=== PATIENT | female | born 1980 | race Caucasian/White ===

== ENCOUNTER 2021-05-09 19:04 | Emergency (ER) | payer SELFPAY ==
[2021-05-09 19:48] LABS: Urine Blood Negative (Negative); Urine Glucose Negative (Negative); Urine Protein Negative (Negative); Urine Specific Gravity 1.015 (1.005-1.030)
--- NOTE | 2021-05-09 20:42 | RAD REPORT ---
EXAM DESCRIPTION: RAD - Chest Single View - 05/09/2021 8:25 pm CLINICAL HISTORY: CONGESTION, flu-like symptoms COMPARISON: Two view chest December 2011 TECHNIQUE: AP portable chest image was obtained 05/09/2021 8:25 pm . FINDINGS: No focal mass or consolidations seen. Interstitial markings are increased from comparison. Over a 9 year interval this could be progressive interstitial lung disease. In a young patient this may be acute interstitial edema or infiltrate. Failure and volume overload are not suspected. Heart and vasculature are normal. No measurable pleura l effusion and no pneumothorax. No acute bony abnormality seen. No acute aortic findings suspected. IMPRESSION: No peripheral mass or consolidation. Increased interstitial opacification compared to prior imaging. In a patient this age, interstitial e mode or infiltrate would be favored over progressive chronic lung disease.
[2021-05-09 22:08] LABS: Absolute Lymphocytes (CBC) 0.9 K/uL (0.7-4.9); Basophils % 0.7 % (0-1.3); Hematocrit 42.6 % (36.0-45.0); Lymphocytes % 24.9 % (15.3-44.8); RBC Red Blood Cell Count 4.46 M/uL (3.86-4.86)
[2021-05-09 22:10] LABS: Urine Specific Gravity/Preg 1.015 (1.005-1.030)
[2021-05-09 22:10] LABS: Protime INR 1.09
[2021-05-09] MEDS ORDERED: NA CHLORIDE 0.9% 1,000 ML ONE (22:13)
[2021-05-09] MEDS ORDERED: DIPHENHYDRAMINE 50 MG/ML VIAL ONE (22:13)
[2021-05-09] MEDS ORDERED: METOCLOPRAMIDE 10 MG/2mL INJ ONE (22:13)
[2021-05-09] MEDS ORDERED: ACETAMINOPHEN 500 MG TAB ONE (22:13)
[2021-05-09 22:18] LABS: ALT/SGPT 32 U/L (12-78); AST/SGOT 27 U/L (15-37); Albumin 3.7 g/dL (3.4-5.0); Alkaline Phosphatase 95 U/L (45-117); BUN Blood Urea Nitrogen 9 mg/dL (7-18); Bicarbonate 26 mmol/L (21-32); Bilirubin Direct < 0.1 mg/dL (0-0.2); Bilirubin Total 0.4 mg/dL (0.2-1.0); Glucose Level 80 mg/dL (74-106); NT PRO-BNP 40 pg/mL (<125); Potassium 3.7 mmol/L (3.5-5.1); Protein, Total 7.3 g/dL (6.4-8.2); Sodium Level 140 mmol/L (136-145); Troponin (Emerg Dept Use Only) < 0.02 ng/mL (0.0-0.045)
[2021-05-09 22:18] LABS: Barbiturates NEGATIVE (NEGATIVE); Benzodiazepines NEGATIVE (NEGATIVE); Cocaine NEGATIVE (NEGATIVE); METHAMPHETAM NEGATIVE (NEGATIVE); Methadone NEGATIVE (NEGATIVE); Opiates NEGATIVE (NEGATIVE); Phencyclidine NEGATIVE (NEGATIVE); THC Cannibis NEGATIVE (NEGATIVE)
--- NOTE | 2021-05-10 00:50 | EDPHYS ---
Physician Documentation [facility] Name: Ailin Centeno Age: 40 yrs Sex: Female : 1980 Arrival Date: 05/09/2021 Time: 19:05 Bed 18 Private MD: ED Physician Gama Peguero HPI: 05/09 22:23 This 40 yrs old Female presents to ER via Ambulatory with complaints of mh7 Headache, body aches, Irregular Pulse. 22:23 The patient or guardian reports cough, that is intermittent, described as moderate, mh7 with no sputum, flu symptoms, myalgias, Palpitations, headache. 22:24 Onset: The symptoms/episode began/occurred yesterday. Severity of symptoms: At their mh7 worst the symptoms were moderate, last night, in the emergency department the symptoms are unchanged. Modifying factors: The symptoms are alleviated by nothing, the symptoms are aggravated by nothing. Associated signs and symptoms: Pertinent negatives: chest pain, diarrhea, ear ache, fever, nausea, rhinorrhea, sore throat, vomiting. 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 - Social history:: Smoking status: Patient reports the use of cigarette tobacco products. ROS: 22:24 Constitutional: Negative for fever, chills, and weight loss, Eyes: Negative for injury, mh7 pain, redness, and discharge, ENT: Negative for injury, pain, and discharge, Neck: Negative for injury, pain, and swelling, Abdomen/GI: Negative for abdominal pain, nausea, vomiting, diarrhea, and constipation, Back: Negative for injury and pain, : Negative for injury, bleeding, discharge, and swelling, MS/Extremity: Negative for injury and deformity, Skin: Negative for injury, rash, and discoloration, Psych: Negative for depression, anxiety, suicide ideation, homicidal ideation, and hallucinations, Allergy/Immunology: Negative for hives, rash, and allergies, Endocrine: Negative for neck swelling, polydipsia, polyuria, polyphagia, and marked weight changes, Hematologic/Lymphatic: Negative for swollen nodes, abnormal bleeding, and unusual bruising. 22:24 Cardiovascular: Negative for chest pain, edema, orthopnea, paroxysmal nocturnal dyspnea. 22:24 Respiratory: Negative for dyspnea on exertion, hemoptysis, orthopnea, pleurisy, shortness of breath, sputum production, wheezing. 22:24 Abdomen/GI: Exam: 22:24 Constitutional: This is a well developed, well nourished patient who is awake, alert, mh7 and in no acute distress. 22:24 Eyes: Pupils equal round and reactive to light, extra-ocular motions intact. Lids and lashes normal. Conjunctiva and sclera are non-icteric and not injected. Cornea within normal limits. Periorbital areas with no swelling, redness, or edema. ENT: Nares patent. No nasal discharge, no septal abnormalities noted. Tympanic membranes are normal and external auditory canals are clear. Oropharynx with no redness, swelling, or masses, exudates, or evidence of obstruction, uvula midline. Mucous membranes moist. Neck: Trachea midline, no thyromegaly or masses palpated, and no cervical lymphadenopathy. Supple, full range of motion without nuchal rigidity, or vertebral point tenderness. No Meningismus. Chest/axilla: Normal chest wall appearance and motion. Nontender with no deformity. No lesions are appreciated. Cardiovascular: Regular rate and rhythm with a normal S1 and S2. No gallops, murmurs, or rubs. Normal PMI, no JVD. No pulse deficits. Abdomen/GI: Soft, non-tender, with normal bowel sounds. No distension or tympany. No guarding or rebound. No evidence of tenderness throughout. Back: No spinal tenderness. No costovertebral tenderness. Full range of motion. Skin: Warm, dry with normal turgor. Normal color with no rashes, no lesions, and no evidence of cellulitis. MS/ Extremity: Pulses equal, no cyanosis. Neurovascular intact. Full, normal range of motion. Neuro: Awake and alert, GCS 15, oriented to person, place, time, and situation. Cranial nerves II-XII grossly intact. Motor strength 5/5 in all extremities. Sensory grossly intact. Cerebellar exam normal. Normal gait. Psych: Awake, alert, with orientation to person, place and time. Behavior, mood, and affect are within normal limits. 22:24 Head/face: Noted is Sinus tenderness, that is moderate, is located over the right frontal sinus and left frontal sinus. 22:24 Respiratory: the patient does not display signs of respiratory distress, Respirations: normal, Breath sounds: rhonchi, that are mild, are scattered. Vital Signs: 19:38 BP 128 / 78; Pulse 97; Resp 18; Temp 98.9; Pulse Ox 98% ; Weight 72.57 kg; Height 5 ft. ea 9 in. (175.26 cm); 22:00 BP 113 / 69; Pulse 88; Resp 18; Pulse Ox 88% on R/A; Pain 6/10; fu 23:00 BP 96 / 59; Pulse 77; Resp 18; Pulse Ox 94% on R/A; fu 0613 00:45 BP 85 / 49; Pulse 67; Resp 16; Temp 98.2; Pulse Ox 94% on R/A; Pain 0/10; fu 01:13 BP 94 / 63; Pulse 60; Resp 18; Pulse Ox 98% ; ea 05/09 19:38 Body Mass Index 23.63 (72.57 kg, 175.26 cm) MDM: 00:48 Differential Diagnosis: Bronchitis Influenza Upper Respiratory Infection Sinusitis [facility] Viral Syndrome Pneumonia. Data reviewed: vital signs, nurses notes, lab test result(s), CBC, electrolytes, urinalysis, radiologic studies, CT scan, plain films. Data interpreted: Pulse oximetry: on room air is 97 %. Interpretation: normal. Counseling: I had a detailed discussion with the patient and/or guardian regarding: the historical points, exam findings, and any diagnostic results supporting the discharge/admit diagnosis, lab results, radiology results, the need for outpatient follow up, to return to the emergency department if symptoms worsen or persist or if there are any questions or concerns that arise at home. Response to treatment: the patient's symptoms have resolved after treatment, the patient's blood pressure is in an acceptable range, mental status has returned to baseline, the patient no longer shows bradycardia, the patient is not short of breath, the patient is not tachycardic, the patient's pain is gone, the patient's temperature has normalized. 00:50 Patient medically screened. [facility] 05/09 19:33 Order name: Flu; Complete Time: 21:32 05/09 19:48 Order name: Urine Dipstick-Ancillary; Complete Time: 20:57 EDNE 05/09 19:54 Order name: Urine --Ancillary (enter results); Complete Time: 22:22 [facility] 05/09 20:57 Order name: SARS-COV-2 RT PCR; Complete Time: 20:57 EDMS 05/09 21:34 Order name: CBC with Diff; Complete Time: 22:22 [facility] 05/09 19:34 Order name: XRAY Chest (1 view); Complete Time: 20:57 05/09 21:34 Order name: Basic Metabolic Panel; Complete Time: 22:22 [facility] 05/09 21:34 Order name: Protime (+inr); Complete Time: 22:22 [facility] 05/09 21:34 Order name: Ptt, Activated; Complete Time: 22:22 [facility] 05/09 21:34 Order name: LFT's; Complete Time: 22:22 [facility] 05/09 21:34 Order name: UDS; Complete Time: 22:22 [facility] 05/09 21:34 Order name: Troponin (emerg Dept Use Only); Complete Time: 22:22 [facility] 05/09 21:34 Order name: PROBNP; Complete Time: 22:22 [facility] 05/09 19:38 Order name: Urine Dipstick-Ancillary (obtain specimen); Complete Time: 21:21 05/09 21:34 Order name: CT Head Brain wo Cont [facility] 05/09 21:35 Order name: EKG - Nurse/Tech; Complete Time: 22:27 7 Administered Medications: 05/09 22:10 Drug: Reglan (metoCLOPramide) 10 mg Route: IVP; Infused Over: 2 mins; Site: left fu antecubital; 23:10 Follow up: Response: No adverse reaction fu 22:10 Drug: Benadryl (diphenhydrAMINE) 25 mg Route: IVP; Site: left antecubital; fu 23:10 Follow up: Response: No adverse reaction fu 22:10 Drug: Tylenol 1000 mg Route: PO; fu 23:10 Follow up: Response: Pain is decreased fu 22:11 Drug: NS 0.9% 1000 ml Route: IV; Rate: 1000 ml; Site: left antecubital; fu 05/10 00:00 Follow up: Response: No adverse reaction; IV Intake: 1000ml fu 01:00 Follow up: IV Status: Completed infusion; IV Intake: 1000ml ea Disposition: 05/10/21 00:50 Discharged to Home. Impression: Bronchitis, Viral Syndrome. - Condition is Stable. - Discharge Instructions: Acute Bronchitis, Xrad-ca-Ipzk, Viral Respiratory Infection, Wkih-Au-Hdch. - Prescriptions for Zithromax Z- Jeanmarie 250 mg Oral Tablet - take 1 tablet by ORAL route as directed for 5 days Day 1 - take two (2) tablets one time. Day 2, 3, 4 , 5 take one (1) tablet once daily.; 6 tablet. - Medication Reconciliation Form, Thank You Letter, Antibiotic Education, Prescription Opioid Use form. - Follow up: Private Physician; When: 1 - 2 days; Reason: Worsening of condition, Recheck today's complaints, Continuance of care, Re-evaluation by your physician. - Problem is new. - Symptoms have improved. Signatures: Dispatcher [employer] [facility] Joellen Fischer RN RN ea Umadhay, Felix, RN RN fu Holmes, Maurice, MD MD mh7 Corrections: (The following items were deleted from the chart) 05/09 20:03 19:34 CORONAVIRUS+MR.LAB.BRZ ordered. [facility] 05/10 01:14 00:50 05/10/2021 00:50 Discharged to Home. Impression: Bronchitis; Viral Syndrome. ea Condition is Stable. Forms are Medication Reconciliation Form, Thank You Letter, Antibiotic Education, Prescription Opioid Use. Follow up: Private Physician; When: 1 - 2 days; Reason: Worsening of condition, Recheck today's complaints, Continuance of care, Re-evaluation by your physician. Problem is new. Symptoms have improved. mh7
--- NOTE | 2021-05-10 00:50 | ER ---
Nurse's Notes [facility] Name: Ailin Centeno Age: 40 yrs Sex: Female : 1980 Arrival Date: 05/09/2021 Time: 19:05 Bed 18 Private MD: Diagnosis: Bronchitis;Viral Syndrome Presentation: 05/09 19:38 Chief complaint: Patient states: Reports she has been having flu like symptoms since ea last night, reports dry cough and body aches, reports her back has been hurting as well. Coronavirus screen: At this time, the client does not indicate any symptoms associated with coronavirus-19. Ebola Screen: No symptoms or risks identified at this time. Initial Sepsis Screen: Does the patient meet any 2 criteria? No. Patient's initial sepsis screen is negative. Does the patient have a suspected source of infection? No. Patient's initial sepsis screen is negative. Risk Assessment: Do you want to hurt yourself or someone else? Patient reports no desire to harm self or others. Onset of symptoms was May 09, 2021. 19:38 Method Of Arrival: Ambulatory ea 19:38 Acuity: BRODERICK 3 ea Triage Assessment: 19:42 General: Appears uncomfortable, Behavior is appropriate for age. Pain: Complains of ea pain in body aches and back pain. 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 - Social history:: Smoking status: Patient reports the use of cigarette tobacco products. Screenin:40 Abuse screen: Denies threats or abuse. Nutritional screening: No deficits noted. ea Tuberculosis screening: No symptoms or risk factors identified. Fall Risk None identified. Assessment: 21:33 General: Appears uncomfortable, Behavior is calm, cooperative, appropriate for age, fu Reports feeling ill for since last night. Pain: Complains of pain in back and body Pain currently is 8 out of 10 on a pain scale. Quality of pain is described as aching, Pain began since last night. Neuro: Level of Consciousness is awake, alert, obeys commands, Oriented to person, place, time, situation, Sales Promotion Representative are equal bilaterally Moves all extremities. Gait is steady, Speech is normal, Facial symmetry appears normal. Cardiovascular: Denies chest pain, nausea, vomiting. Respiratory: Respiratory effort is even, unlabored, Respiratory pattern is regular. GI: No signs and/or symptoms were reported involving the gastrointestinal system. EENT: Reports flu like symptoms. Derm: No signs and/or symptoms reported regarding the dermatologic system. Musculoskeletal: No signs and/or symptoms reported regarding the musculoskeletal system. 23:28 Reassessment: Patient and/or family updated on plan of care and expected duration. Pain fu level reassessed. Patient is alert, oriented x 3, equal unlabored respirations, skin warm/dry/pink. Patient states feeling better. Patient states symptoms have improved. 05/10 01:00 Reassessment: Dr. Peguero notified regarding patient BP 85/49. instructed to let patient fu sit for 15 minutes and recheck BP. 01:12 Reassessment: Patient and/or family updated on plan of care and expected duration. Pain ea level reassessed. Patient is alert, oriented x 3, equal unlabored respirations, skin warm/dry/pink. Discharge instruction given to patient verbalized the understanding of instruction. Pt left ED accompanied by family tolerating well Patient states feeling better. Patient states symptoms have improved. Vital Signs: 05/09 19:38 BP 128 / 78; Pulse 97; Resp 18; Temp 98.9; Pulse Ox 98% ; Weight 72.57 kg; Height 5 ft. ea 9 in. (175.26 cm); 22:00 BP 113 / 69; Pulse 88; Resp 18; Pulse Ox 88% on R/A; Pain 6/10; fu 23:00 BP 96 / 59; Pulse 77; Resp 18; Pulse Ox 94% on R/A; fu 05/10 00:45 BP 85 / 49; Pulse 67; Resp 16; Temp 98.2; Pulse Ox 94% on R/A; Pain 0/10; fu 01:13 BP 94 / 63; Pulse 60; Resp 18; Pulse Ox 98% ; ea 05/09 19:38 Body Mass Index 23.63 (72.57 kg, 175.26 cm) ea ED Course: 05/09 19:05 Patient arrived in ED. as 19:40 Triage completed. ea 19:41 Patient has correct armband on for positive identification. Bed in low position. Call ea light in reach. Side rails up X2. 20:24 XRAY Chest (1 view) In Process Unspecified. EDMS 20:53 Gama Peguero MD is Attending Physician. Debby 21:33 Declan Olivares, RN is Primary Nurse. fu 21:45 Inserted saline lock: 22 gauge in left antecubital area, using aseptic technique. Blood fu collected. 22:07 CT Head Brain wo Cont In Process Unspecified. EDMS 22:11 UDS Sent. fu 05/10 01:13 No provider procedures requiring assistance completed. IV discontinued, intact, ea bleeding controlled, No redness/swelling at site. Pressure dressing applied. Administered Medications: 05/09 22:10 Drug: Reglan (metoCLOPramide) 10 mg Route: IVP; Infused Over: 2 mins; Site: left fu antecubital; 23:10 Follow up: Response: No adverse reaction fu 22:10 Drug: Benadryl (diphenhydrAMINE) 25 mg Route: IVP; Site: left antecubital; fu 23:10 Follow up: Response: No adverse reaction fu 22:10 Drug: Tylenol 1000 mg Route: PO; fu 23:10 Follow up: Response: Pain is decreased fu 22:11 Drug: NS 0.9% 1000 ml Route: IV; Rate: 1000 ml; Site: left antecubital; fu 13 00:00 Follow up: Response: No adverse reaction; IV Intake: 1000ml fu 01:00 Follow up: IV Status: Completed infusion; IV Intake: 1000ml ea Intake: 00:00 IV: 1000ml; Total: 1000ml. fu 01:00 IV: 1000ml; Total: 2000ml. ea Outcome: 00:50 Discharge ordered by . [facility] 01:13 Discharged to home ambulatory, with family. ea 01:13 Condition: stable 01:13 Discharge instructions given to patient, Instructed on discharge instructions, follow up and referral plans. medication usage, Demonstrated understanding of instructions, follow-up care, medications, Prescriptions given X 1. 01:14 Patient left the ED. ea Signatures: Dispatcher [employer] EDMS Melanie Edouard Elena, RN RN ea Umadhay, Felix, RN RN fu Holmes, Maurice, MD MD mh7
[2021-05-10 02:27] VITALS: TEMP 98.2
[2021-05-10 02:28] VITALS: BP 94/63; O2SAT 98
--- NOTE | 2021-05-11 11:09 | RAD REPORT ---
EXAM DESCRIPTION: HEADACHE COMPARISON: None Available. TECHNIQUE: Contiguous axial images of the brain were obtained without the administration of intraven ous contrast. This exam was performed according to our departmental dose-optimization program, which includes automated exposure control, adjustment of the mA and/or kV according to patient size and/or use of iterative reconstruction technique. FINDINGS: There is no acute intracranial hemorrhage or mass effect. Ventricular system is within nor mal limits. There is adequate diaz-white matter differentiation. There is no skull fracture. The visu alized paranasal sinuses and mastoid air cells are within normal limits. Subcentimeter area of low-at tenuation similar to CSF attenuation medial to the right parasylvian fissure compatible with a promin ent CSF space. IMPRESSION: No acute intracranial abnormalities. Electronically signed by: Rufus Freire MD 05/09/2021 10:26 PM CDT Due to temporary technical issues with the PACS/Fluency reporting system, reports are being signed by the in house radiologists without review as a courtesy to insure prompt reporting. The interpreting radiologist is fully responsible for the content of the report.
== END 2021-05-10 01:14 | disposition home or self-care (01) ==
LOC: ER 19:04
DX: J40 Bronchitis, not specified as acute or chronic (principal); B34.9 Viral infection, unspecified; Z20.822 Contact with and (suspected) exposure to COVID-19; Z72.0 Tobacco use
CPT/HCPCS: 36415; 70450; 71045; 80048; 80076; 80307; 81003; 81025; 83880; 84484; 85025; 85610; 85730; 87804; 93005; 96361; 96374; 96375; 99284; J1200; J2765; J7030; U0003

== ENCOUNTER 2022-02-06 23:05 | Emergency (ER) | payer OTHER, SELFPAY ==
--- OUTSIDE RECORDS SUMMARY | 2022-02-06 23:08 | XMS REPORT | Continuity of Care Document ---
:1980 Author Organization [facility] t Address [address] [place] [address] Care Team Providers Name Role Phone Zaid Quick PA-C Attending Clinician Doctor Unassigned, Name Attending Clinician Unavailable UNKNOWN Attending Clinician Unavailable Pob1, Care Clinic Attending Clinician Unavailable Unknown Attending Clinician Unavailable Payers Payer Name Policy Type Policy Number Effective Date Expiration Date S ource Problems Condition Condition Condition Status Onset Resolution Last Treating Co mments Source Name Details Category Date Date Treatment Clinician Date No known No known Disease Unive rs active active ity of problems problems [facility] Allergies, Adverse Reactions, Alerts Allergy Allergy Status Severity Reaction(s) Onset Inactive Treating Comm ents Source Name Type Date Date Clinician NO KNOWN Drug Active Univers ALLERGIE Class ity of S [facility] Social History Social Habit Start Date Stop Date Quantity Comments Source [facility] Smoking Status Start Date Stop Date Source Current every day smoker 2020-02-23 00:00:00 [facility] Medications Ordered Filled Start Stop Current Ordering Indication Dosage Frequency Signature Comments Components Source Medication Medication Date Date Medication? Clinician (SIG) Name Name benzonatate 2019- 2020- No [id number] 200mg Take 1 Univers 200 mg 02-22-08 capsule by ity of capsule 00:00: 04:59 mouth 3 [place] 00 :00 (three) Medical times Branch daily as needed for Cough for up to 10 days. benzonatate 2019- 2020- No [id number] 200mg Take 1 Univers 200 mg 02-22-08 capsule by ity of capsule 00:00: 04:59 mouth 3 [place] 00 :00 (three) Medical times Branch daily as needed for Cough for up to 10 days. benzonatate 2020- 2020- No [id number] 200mg Take 1 Univers 200 mg 3-08 capsule by ity of capsule 00:00: 04:59 mouth 3 [place] 00 :00 (three) Medical times Branch daily as needed for Cough for up to 10 days. multivit,ir 2018-0 Yes Take by Un jelani on,hematin/ 9-30 mouth. ity of minerals 15:31: [place] (MULTIVIT 47 Medical W-IRON,BINH Branch TINIC-MIN ORAL) zolpidem 2018-0 Yes 10mg Take 10 mg Uni vers (AMBIEN) 10 9-30 by mouth ity of mg tablet 15:31: [place]time [place] 47 as needed Medical for Branch Insomnia. multivit,ir 2017-0 Yes Take by Un jelani on,hematin/ 9-30 mouth. ity of minerals 15:31: [place] (MULTIVIT 47 Medical W-IRON,BINH Branch TINIC-MIN ORAL) zolpidem 2018-0 Yes 10mg Take 10 mg Uni vers (AMBIEN) 10 9-30 by mouth ity of mg tablet 15:31: [place]time [place] 47 as needed Medical for Branch Insomnia. multivit,ir 2017-0 Yes Take by Un jelani on,hematin/ 9-30 mouth. ity of minerals 15:31: [place] (MULTIVIT 47 Medical W-IRON,BINH Branch TINIC-MIN ORAL) zolpidem 2018-0 Yes 10mg Take 10 mg Uni vers (AMBIEN) 10 9-30 by mouth ity of mg tablet 15:31: [place]time [place] 47 as needed Medical for Branch Insomnia. ondansetron 2018-0 Yes 4mg Take 1 Univ ers 4 mg 9-30 tablet by ity of disintegrat 00:00: mouth [place] ing tablet 00 every 4 Medica l (four) Branch hours as needed for Nausea and Vomiting (N/V). ibuprofen 2018-0 Yes 800mg Take 1 Unive rs 800 mg 9-30 tablet by ity of tablet 00:00: mouth [place] 00 every 8 Medical (eight) Branch hours. ondansetron 2018-0 Yes 4mg Take 1 Univ ers 4 mg 9-30 tablet by ity of disintegrat 00:00: mouth [place] ing tablet 00 every 4 Medica l (four) Branch hours as needed for Nausea and Vomiting (N/V). ibuprofen 2018-0 Yes 800mg Take 1 Unive rs 800 mg 9-30 tablet by ity of tablet 00:00: mouth [place] 00 every 8 Medical (eight) Branch hours. ondansetron 2018-0 Yes 4mg Take 1 Univ ers 4 mg 9-30 tablet by ity of disintegrat 00:00: mouth [place] ing tablet 00 every 4 Medica l (four) Branch hours as needed for Nausea and Vomiting (N/V). ibuprofen 2018-0 Yes 800mg Take 1 Unive rs 800 mg 9-30 tablet by ity of tablet 00:00: mouth [place] 00 every 8 Medical (eight) Branch hours. Vital Signs Vital Name Observation Time Observation Value Comments Source Systolic blood 2020-02-23 15:18:00 127 mm[Hg] Univer sity pressure [facility] Diastolic blood 2020-02-23 15:18:00 83 mm[Hg] [facility] Heart rate 2020-02-23 15:18:00 86 /min [facility] Body temperature 2020-02-23 15:18:00 36.83 Sammie [facility] Respiratory rate 2020-02-23 15:18:00 18 /min [facility] Body height 2020-02-23 15:18:00 175.3 cm [facility] Body weight 2020-02-23 15:18:00 74.39 kg [facility] BMI 2020-02-23 15:18:00 24.22 kg/m2 [facility] Oxygen saturation in 2020-02-23 15:18:00 99 /min [facility] blood by [facility] Pulse oximetry Branch Procedures Procedure Date / Time Performed Performing Clinician [facility] e ASSIGNMENT OF BENEFITS 2020-02-24 05:01:00 Doctor Unassigned, No [facility] Branch Encounters Start End Encounter Admission Attending Care Care Encounter Source Date/Time Date/Time Type Type Clinicians Facility Department ID 2020-02-25 2020-02-25 Telephone Mady Quick [facility] [id number] [facility] 00:00:00 00:00:00 [facility] [employer] [facility] [id number] it y of [place] [id number] [place] as Ric [id number] Dc dical [facility] [address] 2020-02-24 2020-02-24 Orders Doctor AAYUSH [id number] Univers 00:00:00 00:00:00 Only Unassigned, ARY [id number] ity of [place] [facility] [id number] [place] as [id number] [address] 2020-02-23 2020-02-23 Outpatient R UNKNOWN, [facility] [id number] Univers 10:40:00 10:40:00 ATTENDING ity of [facility] 2020-02-23 2020-02-23 Urgent Pob1, Acute Care Clinic [facility] [id number] Univers 10:04:39 10:24:39 Care Unknown, Attending Health [id number] ity of [place] [id number] [place] Ric [id number] Dc dic[address] 2020-02-23 2020-02-23 Outpatient R [facility] [id number] Univers 10:00:00 10:00:00 [id number] ity [facility] Results This patient has no known results.
[2022-02-07 00:51] LABS: SARS-COV-2 RT PCR NEGATIVE (NEGATIVE)
[2022-02-07] MEDS ORDERED: IBUPROFEN 200 MG TAB PO ONE (00:59)
--- NOTE | 2022-02-07 01:13 | ER ---
Nurse's Notes [facility] Name: Ailin Centeno Age: 41 yrs Sex: Female : 1980 Arrival Date: 02/06/2022 Time: 23:07 Bed 10 Private MD: Diagnosis: Cough;Acute pharyngitis, unspecified Presentation: 02/06 23:12 Chief complaint: Patient states: Fever, body aches and cough since today. Coronavirus st1 screen: Vaccine status: Patient reports receiving the 2nd dose of the covid vaccine. [employer]. Ebola Screen: No symptoms or risks identified at this time. Initial Sepsis Screen: Does the patient meet any 2 criteria? No. Patient's initial sepsis screen is negative. Does the patient have a suspected source of infection? No. Patient's initial sepsis screen is negative. Risk Assessment: Do you want to hurt yourself or someone else? Patient reports no desire to harm self or others. Onset of symptoms was February 06, 2022. 23:12 Method Of Arrival: Ambulatory st1 23:12 Acuity: [place] 4 st1 Triage Assessment: 23:13 General: Appears in no apparent distress. uncomfortable, Behavior is calm, cooperative. st1 Pain: Complains of pain in Generalized pain Pain currently is 4 out of 10 on a pain scale. 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 - Social history:: Smoking status: Patient reports the use of cigarette tobacco products, smokes one-half pack cigarettes per day, Patient/guardian denies using alcohol, street drugs. Screenin:18 Abuse screen: Denies threats or abuse. Nutritional screening: No deficits noted. st1 Tuberculosis screening: No symptoms or risk factors identified. Fall Risk None identified. No fall in past 12 months (0 pts). No secondary diagnosis (0 pts). No IV (0 pts). Ambulatory Aid- None/Bed Rest/Nurse Assist (0 pts). Gait- Normal/Bed Rest/Wheelchair (0 pts) Mental Status- Oriented to own ability (0 pts). Total Hunter Fall Scale indicates No Risk (0-24 pts). Assessment: 23:18 Reassessment: please see triage note. st1 02/07 01:02 General: Appears in no apparent distress. uncomfortable, slender, well groomed, st1 Behavior is calm, cooperative. Neuro: No deficits noted. Respiratory: Reports cough that is persistent. Vital Signs: 02/06 23:12 Weight 81.65 kg; Height 5 ft. 9 in. (175.26 cm); Pain 4/10; st1 23:16 BP 127 / 80; Pulse 92; Resp 20; Temp 98.1; Pulse Ox 99% on R/A; st1 02/07 01:30 BP 130 / 60; Pulse 84; Resp 16; Pulse Ox 99% on R/A; st1 02/06 23:12 Body Mass Index 26.58 (81.65 kg, 175.26 cm) st1 ED Course: 02/06 23:07 Patient arrived in ED. 23:12 Lora Alarcon, HUNTER is Primary Nurse. st1 23:13 Triage completed. st1 23:13 Arm band placed on right wrist. st1 23:18 Patient has correct armband on for positive identification. st1 23:18 No provider procedures requiring assistance completed. st1 23:24 Moises Hastings PA is [facility] 23:24 Luis Braxton MD is Attending Physician. [facility] 23:47 Group A Streptococcus Rapid Sc Sent. st1 23:47 COVID-19/FLU A+B (Document "Date of Onset" if Symptomatic) Sent. st1 23:47 Strep Sent. st1 02/07 01:30 Patient did not have IV access during this emergency room visit. st1 Administered Medications: 01:02 Drug: Ibuprofen 600 mg Route: PO; lp1 Outcome: 01:13 Discharge ordered by . [facility] 01:29 Discharged to home ambulatory. st1 01:29 Condition: good 01:29 Discharge instructions given to patient, Instructed on discharge instructions, follow up and referral plans. no drinking with medication, medication usage, Demonstrated understanding of instructions, follow-up care, medications, Prescriptions given X 2. 01:31 Patient left the ED. st1 Signatures: Moises Hastings PA PA Michelle Avendano RN RN lp1 Ileana Tiwari Tingle, Lora, RN RN st1
--- NOTE | 2022-02-07 01:13 | EDPHYS ---
Physician Documentation [facility] Name: Ailin Centeno Age: 41 yrs Sex: Female : 1980 Arrival Date: 02/06/2022 Time: 23:07 Bed 10 Private MD: ED Physician Luis Braxton HPI: 02/06 23:30 This 41 yrs old Female presents to ER via Ambulatory with complaints of Fever, Body jmm aches, Cough. 23:30 The patient reports fever, not measured (subjective). Onset: The symptoms/episode jmm began/occurred today. Associated signs and symptoms: Pertinent positives: chills, cough. It is unknown whether or not the patient has had similar symptoms in the past. Is a 41-year-old female with no chronic lung conditions the presents emerged part with complaints of cough, body aches getting earlier today. Denies vomiting or diarrhea.. 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 - Social history:: Smoking status: Patient reports the use of cigarette tobacco products, smokes one-half pack cigarettes per day, Patient/guardian denies using alcohol, street drugs. ROS: 23:30 Constitutional: Positive for body aches, chills. jmm 23:30 ENT: 23:30 Respiratory: Positive for cough. 23:30 All other systems are negative. Exam: 23:30 Constitutional: This is a well developed, well nourished patient who is awake, alert, jmm and in no acute distress. Head/Face: atraumatic. Eyes: EOMI, no conjunctival erythema appreciated 23:30 Neck: Trachea midline, Supple Chest/axilla: Normal chest wall appearance and motion. Cardiovascular: Regular rate and rhythm. No edema appreciated Respiratory: Normal respirations, no respiratory distress appreciated Abdomen/GI: Non distended, soft Back: Normal ROM Skin: General appearance color normal MS/ Extremity: Moves all extremities, no obvious deformities appreciated, no edema noted to the lower extremities Neuro: Awake and alert Psych: Behavior is normal, Mood is normal, Patient is cooperative and pleasant 23:30 ENT: Posterior pharynx: erythema, that is moderate. Vital Signs: 23:12 Weight 81.65 kg; Height 5 ft. 9 in. (175.26 cm); Pain 4/10; st1 23:16 BP 127 / 80; Pulse 92; Resp 20; Temp 98.1; Pulse Ox 99% on R/A; st1 03 01:30 BP 130 / 60; Pulse 84; Resp 16; Pulse Ox 99% on R/A; st1 02/06 23:12 Body Mass Index 26.58 (81.65 kg, 175.26 cm) st1 MDM: 03 23:30 Patient medically screened. [facility] 02/07 01:12 Data reviewed: vital signs, nurses notes. Counseling: I had a detailed discussion with loco the patient and/or guardian regarding: the historical points, exam findings, and any diagnostic results supporting the discharge/admit diagnosis, lab results, the need for outpatient follow up, to return to the emergency department if symptoms worsen or persist or if there are any questions or concerns that arise at home. ED course: Patient is alert and nontoxic in appearance in the ED. No signs of respiratory distress. Patient able tolerate p.o. Patient advised follow-up P CP and otherwise given strict return precautions. Patient understood and agrees plan of care. 02/06 23:35 Order name: Strep [facility] 02/06 23:35 Order name: COVID-19/FLU A+B (Document "Date of Onset" if Symptomatic); Complete Time: [facility] 00:54 02/06 23:35 Order name: Group A Streptococcus Rapid Sc; Complete Time: 01:14 [facility] 02/07 01:07 Order name: Throat Culture [facility] Administered Medications: 01:02 Drug: Ibuprofen 600 mg Route: PO; lp1 Disposition: 03:09 Co-signature as Attending Physician, Luis Braxton MD. rn Disposition Summary: 02/07/22 01:13 Discharge Ordered Location: Home [facility] Condition: Stable [facility] Diagnosis - Cough [facility] - Acute pharyngitis, unspecified [facility] Followup: [facility] - With: Private Physician - When: 2 - 3 days - Reason: Recheck today's complaints, Continuance of care, Re-evaluation by your physician Discharge Instructions: - Discharge Summary Sheet [facility] - Pharyngitis [facility] - Cough, Adult [facility] - Form - Return To Work [facility] Forms: - Medication Reconciliation Form [facility] - Thank You Letter jm - Antibiotic Education [facility] - Prescription Opioid Use [facility] Prescriptions: - Bromfed DM 2-30-10 mg/5 mL Oral syrup - take 10 milliliter by ORAL route every 4 hours; 200 milliliter; Refills: 0, jm Product Selection Permitted - Zithromax Z-Jeanmarie 250 mg Oral Tablet - take 1 tablet by ORAL route as directed for 5 days Day 1 - take two (2) tablets [facility] one time. Day 2, 3, 4 , 5 take one (1) tablet once daily.; 6 tablet; Refills: 0, Product Selection Permitted Signatures: Dispatcher [employer] EDMoises Muhammad PA PA jmm Nieto, Roman, MD MD rn Pena, Laura RN RN lp1 Lora Alarcon RN RN st1
[2022-02-07 03:40] VITALS: TEMP 98.1; O2SAT 99
[2022-02-07 03:41] VITALS: BP 130/60
== END 2022-02-07 01:31 | disposition home or self-care (01) ==
LOC: ER 23:05
DX: J02.9 Acute pharyngitis, unspecified (principal); F17.210 Nicotine dependence, cigarettes, uncomplicated; Z20.822 Contact with and (suspected) exposure to COVID-19
CPT/HCPCS: 87070; 87081; 0240U; 99283